=== PATIENT | male | born 1950 | race Caucasian/White ===

== ENCOUNTER 2017-11-22 19:03 | Emergency (ER) | payer OTHER ==
[~2017-11-22] VITALS: Ht 182.9 cm; Wt 73.3 kg
[~2017-11-22 19:03] MED LIST: PERCOCET 5/31 TABLET PO; VICODIN 5-3001 EACH PO
[2017-11-22] MEDS ORDERED: FLEXERIL10 MG PO (20:52)
[2017-11-22] MEDS ORDERED: MOTRIN600 MG PO (20:52)
[2017-11-22 21:02] VITALS: BP 154/90
== END 2017-11-22 21:03 | disposition home or self-care (01) ==
LOC: EME 19:03
DX: R51 Headache (principal); M62.838 Other muscle spasm; Z91.81 History of falling; R53.82 Chronic fatigue, unspecified; F17.200 Nicotine dependence, unspecified, uncomplicated
CPT/HCPCS: 70450; 72125; 99281; 99284; J1885